=== PATIENT | male | born 1985 | race Caucasian/White ===

== ENCOUNTER 2020-04-02 11:37 | Day surgery (SDC) | payer OTHER ==
[~2020-04-02] VITALS: Ht 172.7 cm; Wt 80.0 kg
[~2020-04-02 11:37] MED LIST: FAMO40TA3; NS 1,000 ML IV ONE; OMEP-218; SERT-138
[2020-04-02] MEDS ORDERED: LIDOCAINE 2% 100MG/5ML SDV (FOR ANES.) As Ordered ONE (12:11)
[2020-04-02] MEDS ORDERED: propofoL 200 MG/20 ML VIAL As Ordered ONE ×2 (12:11→12:27)
--- NOTE | 2020-04-02 12:31 | ROOR ---
Patient Name: Graham Mora Procedure Date: 04/02/2020 12:15 PM Date of : 1985 Age: 34 Room: [facility] Gender: Male Note Status: Finalized Procedure: Upper Endoscopy + Biopsies Indications: Abdominal pain in the left upper quadrant, Heartburn, Chest pain (non cardiac) Providers: Titus Tomas MD Referring MD: ALEXANDRA MORRIS MD Requesting Provider: Medicines: Monitored Anesthesia Care Complications: No immediate complications. Procedure: Pre-Anesthesia Assessment: - The heart rate, respiratory rate, oxygen saturations, blood pressure, adequacy of pulmonary ventilation, and response to care were monitored throughout the procedure. The Endoscope was introduced through the mouth, and advanced to the second part of duodenum. The upper GI endoscopy was accomplished without difficulty. The patient tolerated the procedure well. Findings: The Z-line was irregular and was found 40 cm from the incisors. Multiple biopsies were obtained with cold forceps for evaluation to rule out Luna's Esophagus randomly at the gastroesophageal junction. A single polyp was found 35 cm from the incisors. The polyp was removed with a cold biopsy forceps. Resection and retrieval were complete. No other significant abnormalities were identified in a careful examination of the stomach. Biopsies were taken with a cold forceps in the gastric antrum for Helicobacter pylori testing. The exam of the duodenum was otherwise normal. Impression: - Z-line irregular, 40 cm from the incisors. - Esophageal polyp(s) were found. Resected and retrieved. - Multiple biopsies were obtained at the gastroesophageal junction. - Biopsies were taken with a cold forceps for Helicobacter pylori testing. - The examination was otherwise normal. Recommendation: - Patient has a contact number available for emergencies. The signs and symptoms of potential delayed complications were discussed with the patient. Return to normal activities tomorrow. Written discharge instructions were provided to the patient. - High fiber diet. - Discharge patient to home. - Follow an antireflux regimen. - Continue present medications. - Await pathology results. - Telephone GI clinic for pathology results in 1 week. - Return to referring physician. - The findings and recommendations were discussed with the patient. Titus Tomas MD Titus Tomas MD 04/02/2020 12:30:14 PM Electronically signed by Titus Tomas MD Number of Addenda: 0 Note Initiated On: 04/02/2020 12:15 PM Estimated Blood Loss: Estimated blood loss: none.
--- NOTE | 2020-04-02 12:47 | ROOR ---
Patient Name: Graham Mora Procedure Date: 04/02/2020 12:16 PM Date of : 1985 Age: 34 Room: [facility] Gender: Male Note Status: Finalized Procedure: Total Colonoscopy to Cecum + Cold Snare Polypectomy + Hemoclips + ileoscopy Indications: Change in bowel habits Providers: Titus Tomas MD Referring MD: ALEXANDRA MORRIS MD Requesting Provider: Medicines: Monitored Anesthesia Care Complications: No immediate complications. Procedure: Pre-Anesthesia Assessment: - The heart rate, respiratory rate, oxygen saturations, blood pressure, adequacy of pulmonary ventilation, and response to care were monitored throughout the procedure. The Colonoscope was introduced through the anus and advanced to the terminal ileum, with identification of the appendiceal orifice and IC valve. The colonoscopy was performed without difficulty. The patient tolerated the procedure well. The quality of the bowel preparation was excellent. Findings: The perianal and digital rectal examinations were normal. Non-bleeding internal hemorrhoids were found during retroflexion. The hemorrhoids were small and Grade I (internal hemorrhoids that do not prolapse). A medium polyp was found at 10 cm proximal to the anus. The polyp was semi-pedunculated. The polyp was removed with a cold snare. Resection and retrieval were complete. To prevent bleeding after the polypectomy, two hemostatic clips were successfully placed (MR conditional). There was no bleeding at the end of the procedure. The exam was otherwise without abnormality on direct and retroflexion views. Biopsies for histology were taken with a cold forceps from the ascending colon and descending colon for evaluation of microscopic colitis. The terminal ileum appeared normal. The exam was otherwise without abnormality on direct and retroflexion views. Impression: - Non-bleeding internal hemorrhoids. - One medium polyp at 10 cm proximal to the anus, removed with a cold snare. Resected and retrieved. Clips (MR conditional) were placed. - The examination was otherwise normal on direct and retroflexion views. - The examined portion of the ileum was normal. - The examination was otherwise normal on direct and retroflexion views. - Biopsies were taken with a cold forceps from the ascending colon and descending colon for evaluation of microscopic colitis. - The exam was otherwise normal to the cecum. Recommendation: - Patient has a contact number available for emergencies. The signs and symptoms of potential delayed complications were discussed with the patient. Return to normal activities tomorrow. Written discharge instructions were provided to the patient. - High fiber diet. - Discharge patient to home. - Continue present medications. - Await pathology results. - Telephone GI clinic for pathology results in 1 week. - Repeat colonoscopy in 3 years for surveillance based on pathology results. - Return to referring physician. - The findings and recommendations were discussed with the patient. Titus Tomas MD Titus Tomas MD 04/02/2020 12:46:50 PM Electronically signed by Titus Tomas MD Number of Addenda: 0 Note Initiated On: 04/02/2020 12:16 PM Estimated Blood Loss: Estimated blood loss: none.
[2020-04-02 13:15] VITALS: BP 108/81
== END 2020-04-02 13:35 | disposition home or self-care (01) ==
LOC: M OPP 11:37
PROVIDERS: ATTEND Internal Medicine Gastroenterology
DX: D12.6 Benign neoplasm of colon, unspecified (principal); K64.0 First degree hemorrhoids; R19.4 Change in bowel habit; K22.8 Other specified diseases of esophagus; K31.89 Other diseases of stomach and duodenum; R10.12 Left upper quadrant pain; R07.89 Other chest pain; R12 Heartburn; K21.9 Gastro-esophageal reflux disease without esophagitis